=== PATIENT | male | born 1990 | race Caucasian/White ===

== ENCOUNTER 2024-02-09 17:59 | Emergency (ER) | payer BC ==
[~2024-02-09] VITALS: Ht 170.2 cm; Wt 61.2 kg
[2024-02-09 18:10] VITALS: BP 117/76; TEMP 98.3; O2SAT 98
== END 2024-02-09 18:32 | disposition home or self-care (01) ==
LOC: ER 18:05
DX: H91.91 Unspecified hearing loss, right ear (principal); Z60.2 Problems related to living alone